=== PATIENT | male | born 1995 | race African-American/Black ===

== ENCOUNTER 2018-09-15 17:07 | Observation (INO) | payer BC ==
[~2018-09-15] VITALS: Ht 170.2 cm; Wt 63.0 kg
[~2018-09-15 17:07] MED LIST: NAPROSYN500 MG PO
--- NOTE | 2018-09-15 17:20 | NUR ---
PT TO ROOM WITH A STEADY GAIT.
--- NOTE | 2018-09-15 17:50 | NUR ---
IV INITATED AND LABS COLLECTED. PT MEDICATED WITH 4 MG OF ZOFRAN IVP AND FLUIDS INITIATED. PT AWARE OF PLAN OF CARE AND WAIT TIME. CALL LOPEZ WITHIN REACH, WILL CONTINUE TO MONITOR.
[2018-09-15 18:01] LABS: IMMATURE GRANULOCYTES 0.4 % (0.0-5.0); MEAN CORPUSCULAR HGB 27.4 pG CALC (26.0-32.0); MEAN CORPUSCULAR HGB CONC 31.9 g/L CALC (32.0-36.0); NEUT# 6.49 thou/uL (1.82-7.42); RED BLOOD COUNT 5.44 mill/uL (4.70-6.10)
[2018-09-15 18:04] LABS: HEMATOCRIT 46.7 % (39.0-50.0); HEMOGLOBIN 14.9 g/dl (14.0-18.0); MEAN CELL VOLUME 85.8 fL CALC (80.0-100.0)
--- NOTE | 2018-09-15 18:05 | NUR ---
TEMP RECHECK 101.2. PT ALSO REPORTS GENERALIZED BODY ACHES AND 4/10 PAIN TO THE RUQ. MLP NOTIFIED, AWAITING NEW RESULTS.
--- NOTE | 2018-09-15 18:10 | NUR ---
PT MEDICATED WITH 30 MG OF TORADOL IVP PER ORDER. LIGHTS DIMMED FOR COMFORT, PT AWARE OF PENDING CT SCAN. CALL LOPEZ WITHIN REACH.
[2018-09-15 18:15] LABS: ALBUMIN 4.9 g/dL (3.2-5.0); ALKALINE PHOSPHATASE 76 u/l (38-126); ANION GAP 16 (6-22 (CALC)); BILIRUBIN, TOTAL 0.7 mg/dL (0.0-1.4); BUN 13 mg/dL (9-20); BUN/CREATININE RATIO 14 (12-20 (CALC)); CARBON DIOXIDE 26 mmol/l (22-30); CHLORIDE 103 mmol/l (95-108); GFR > 60 ML/MIN (>=60 (CALC)); GFR FOR AFR.AMER. > 60 ML/MIN (>=60 (CALC)); LIPASE 51 u/l (23-300); POTASSIUM 4.4 mmol/l (3.5-5.1); SGOT/AST 24 u/l (17-59); SODIUM 140 mmol/l (137-146); TOTAL PROTEIN 8.8 g/dL (6.3-8.2)
--- NOTE | 2018-09-15 18:50 | NUR ---
PT REPORT TO PURNIMA MITCHELL.
--- NOTE | 2018-09-15 19:02 | NUR ---
RETURNED FROM CT.
--- NOTE | 2018-09-15 19:11 | NUR ---
PT AWAKE AND ALERT. PT RELATED PAIN HAS IMPROVED. CALL LOPEZ IN REACH.
[2018-09-15 20:00] LABS: URINE BILIRUBIN - DIPSTICK NEGATIVE (NEGATIVE); URINE BLOOD DIPSTICK NEGATIVE (NEGATIVE); URINE COLOR YELLOW; URINE GLUCOSE - DIPSTICK NEGATIVE (NEGATIVE); URINE KETONE NEGATIVE (NEGATIVE); URINE LEUK ESTERASE NEGATIVE (NEGATIVE); URINE NITRITE - DIPSTICK NEGATIVE (Negative); URINE PROTEIN - DIPSTICK NEGATIVE (NEG-TRACE); URINE SPECIFIC GRAVITY 1.015; URINE UROBILINOGEN - DIPSTICK 0.2 E.U./dL (0.2)
[2018-09-15 20:01] LABS: URINE CLARITY CLEAR
--- NOTE | 2018-09-15 20:55 | NUR ---
PT C/O NAUSEA DRINKING PO CONTRAST.
--- NOTE | 2018-09-15 21:32 | NUR ---
PT RELATED NAUSEA IMPROVED. PT DRINKING LAST PO CONSTRAST.
--- NOTE | 2018-09-15 22:24 | NUR ---
PT TO CT.
--- NOTE | 2018-09-15 22:39 | NUR ---
RETURNED FROM CT.
--- NOTE | 2018-09-15 23:18 | NUR ---
DR HINKLE AT BEDSIDE.
--- NOTE | 2018-09-15 23:51 | NUR ---
PT INFORMED OF REPEAT CT.
[2018-09-16] VITALS (12 sets, daily range): BP systolic 121–143; BP diastolic 62–87
--- NOTE | 2018-09-16 01:03 | NUR ---
PT TO CT.
--- NOTE | 2018-09-16 01:16 | NUR ---
RETURNED FROM CT.
--- NOTE | 2018-09-16 01:45 | NUR ---
INFORMED PT OF ADMISSION.
--- NOTE | 2018-09-16 02:11 | NUR ---
REPORT CALLED TO [facility] ICU.
--- NOTE | 2018-09-16 02:20 | NUR ---
PT TO ICU2 MED/SURG OVERFLOW WITH RN. PT COND STABLE.
--- NOTE | 2018-09-16 02:25 | NUR ---
PT TO ICU BED 2 VIA STRETCHER ACCOMPANIED BY ER STAFF. PT IS ALERT AND ORIENTED X3. ADMISSION ASSESSMENT COMPLETED AT THIS TIME. PLAN OF CARE REVIEWED. IV PATENT X1. ORIENTED TO ROOM AND UNIT. CALL LIGHT IN REACH. WILL CONTINUE TO MONITOR.
--- NOTE | 2018-09-16 03:41 | NUR ---
PT RESTING IN BED WITH EYES CLOSED. RESP ARE EVEN AND UNLABORED. NO DISTRESS NOTED. CALL LIGHT IN REACH. WILL CONTINUE TO MONITOR.
--- NOTE | 2018-09-16 07:05 | NUR ---
awake in bed; no distress noted; pt offers no complaints; assessment completed at this time; pt alert and oriented; denies pain; no n/v noted; resp even and unlabored; lungs clear throughout; skin color wnl; ra; hr reg; strong pulses; no edema noted; sr on monitor; abd soft with bs present; no pain with palpation/ no rebound pain noted; pt admits to prev having pain around umbilicus area; no bm noted per food writer at present; pt no urine to inspect at present; #20 in lac patent with ivf infusing without complication; no redness or edema noted at site; npo; plan of care explained; call light within reach; will continue to monitor
--- NOTE | 2018-09-16 08:06 | NUR ---
awake in bed; offers no complaints; iv patent; npo; call light within reach; will continue to monitor
--- NOTE | 2018-09-16 08:41 | NUR ---
Dr Palma called per this radio news writer in regards to Zosyn/ no orders for antibiotics; Dr Palma states that is up to the surgeon; will notify Dr Malik
--- NOTE | 2018-09-16 08:47 | NUR ---
Dr Malik called per loan underwriter in regards to antibiotics; informed none ordered; zosyn ordered and to be started now
--- NOTE | 2018-09-16 10:10 | NUR ---
awake in bed; s/o at bedside; no distress noted; iv patent; no redness or edema noted at site; NPO; denies needs; call light within reach; will continue to monitor
--- NOTE | 2018-09-16 10:51 | NUR ---
Dr Palma present at bedside to assess pt and discuss plan of care
--- NOTE | 2018-09-16 11:47 | NUR ---
OR at bedside to receive pt; report given to Ari Sahu RN
--- NOTE | 2018-09-16 14:20 | NUR ---
received from OR via stretcher accompanied by OR staff in stable condition; able to move self over to bed; assessment completed; alert but drowsy; resp even and unlabored; lungs clear; skin color wnl; ra; hr reg; strong pulses; no edema noted; bilat scd's placed; abd soft/ tender with bs hypoactive; #20 to lac with ivf infusing without complication; no redness or edema noted at site; dermabond glur intact to abd incisions x3; no drainage noted; plan of care explained; call light within reach; will continue to monitor
--- NOTE | 2018-09-16 14:26 | NUR ---
pt in OR
--- NOTE | 2018-09-16 14:40 | NUR ---
report received from OR PURNIMA Valerio
--- NOTE | 2018-09-16 15:14 | NUR ---
RT Fonseca at bedside with IS
--- NOTE | 2018-09-16 15:39 | NUR ---
awake in bed; s/o at bedside; IS explained with return demo; pt able to pull 2000ml x10 reps; is encouraged q1 hr x 10 reps
--- NOTE | 2018-09-16 15:58 | NUR ---
awake in bed; s.o in bed with pt; pt denies needs; deny pain; iv patent; fluids infusing without complication; no redness or edema noted at site; IS at bedside; scd's intact; call light within reach; will continue to monitor
--- NOTE | 2018-09-16 18:06 | NUR ---
awake in bed; eating cl liquids; offers no complaints; no distress noted; iv patent; fluids infusing without complication; no redness or edema noted at site; bed in lowest position; call light within reach
--- NOTE | 2018-09-16 19:30 | NUR ---
PT SITTING UP IN BED WATCHING TV. VISITOR IN ROOM. PT IS ALERT AND ORIENTED X3. SHIFT ASSESSMENT COMPLETED AT THIS TIME. IV PATENT X1. PLAN OF CARE REVIEWED WITH PT. CALL LIGHT IN REACH. WILL CONTINUE TO MONITOR
--- NOTE | 2018-09-16 22:09 | NUR ---
PUDDING PROVIDED. PT TOLERATED WELL. DILAUDID GIVEN IV PUSH PER MAR FOR PAIN. SIGNIFICANT OTHER IN BED WIT PT. CALL LIGHT IN REACH. WILL CONTINUE TO MONTIOR.
[2018-09-17] VITALS: BP 113/72
--- NOTE | 2018-09-17 00:03 | NUR ---
PT RESTING IN BED WITH EYES CLOSED. RESP ARE EVEN AND UNLABORED. NO DISTRESS NOTED. CALL LIGHT INR EACH. WILL CONTINUE TO MONITOR.
--- NOTE | 2018-09-17 03:32 | NUR ---
PT RESTING IN BED WITH EYES CLOSED. RESP ARE EVEN AND UNLABORED. NO DISTRESS NOTED. CALL LIGHT IN REACH. WILL CONTINUE TO MONTIOR
[2018-09-17 04:00] VITALS: BP 130/62
--- NOTE | 2018-09-17 04:05 | NUR ---
DIRECTOR TELEVISION NEWS INTO ROOM TO DRAW AM LABS
[2018-09-17 04:47] LABS: IMMATURE GRANULOCYTES 0.3 % (0.0-5.0); MEAN CELL VOLUME 87.6 fL CALC (80.0-100.0); MEAN CORPUSCULAR HGB CONC 30.8 g/L CALC (32.0-36.0); NEUT# 1.4 thou/uL (1.82-7.42); RED BLOOD COUNT 4.19 mill/uL (4.70-6.10); RED CELL DISTRI WIDTH 13.2 % (11.5-15.5)
[2018-09-17 04:58] LABS: HEMATOCRIT 36.7 % (39.0-50.0); HEMOGLOBIN 11.3 g/dl (14.0-18.0)
[2018-09-17 05:05] LABS: ALKALINE PHOSPHATASE 47 u/l (38-126); ANION GAP 9 (6-22 (CALC)); BILIRUBIN, TOTAL 0.5 mg/dL (0.0-1.4); BUN 8 mg/dL (9-20); BUN/CREATININE RATIO 8 (12-20 (CALC)); CARBON DIOXIDE 25 mmol/l (22-30); CHLORIDE 108 mmol/l (95-108); GFR > 60 ML/MIN (>=60 (CALC)); GFR FOR AFR.AMER. > 60 ML/MIN (>=60 (CALC)); MAGNESIUM 1.7 mg/dL (1.6-2.3); POTASSIUM 3.8 mmol/l (3.5-5.1); SGOT/AST 17 u/l (17-59); SODIUM 139 mmol/l (137-146)
[2018-09-17 05:06] LABS: ALBUMIN 2.9 g/dL (3.2-5.0); TOTAL PROTEIN 5.6 g/dL (6.3-8.2)
[2018-09-17 08:00] VITALS: BP 129/80
--- NOTE | 2018-09-17 08:00 | NUR ---
PT TOLERATED BREAKFAST WELL WITHOUT NAUSEA. SCDs OFF, ALLOWING PT TO AMBULATE IN ROOM TOLERATED. PAIN LEVEL TOLERABLE. NO DISTRESS, NO COMPLAINTS.
[2018-09-17 10:00] VITALS: BP 129/78
[2018-09-17] MEDS ORDERED: PERCOCET 5/325M1 TAB PO (11:06)
--- NOTE | 2018-09-17 11:48 | NUR ---
DR RICO HAS DISCHARGED PT TO HOME. IV REMOVED, MONITORS REMOVED, PT PROVIDED ANOTHER DOSE OF TORADOL PRIOR TO DEPARTURE. PT HAS BEEN AMBULATORY IN ROOM WITHOUT SIGNIFICANT DISCOMFORT. PT LEAVES [facility] IN STABLE CONDITION VIA WHEELCHAIR.
== END 2018-09-17 11:50 | disposition home or self-care (01) | DRG 343 ==
LOC: ED 17:07 → ED-I 09-16 01:00 → ED 09-16 01:48 → ICU 09-16 01:49
PROVIDERS: ADMIT Internal Medicine Nephrology; ATTEND Internal Medicine Nephrology
PROC: 0DTJ4ZZ Resection of Appendix, Percutaneous Endoscopic Approach (ICD-10-PCS; principal; 2018-09-16)
DX: K35.80 Unspecified acute appendicitis (principal); K38.1 Appendicular concretions; F12.10 Cannabis abuse, uncomplicated
CPT/HCPCS: J0131; J2710; Q9967

== ENCOUNTER 2019-01-29 12:37 | Emergency (ER) | payer BC ==
[~2019-01-29] VITALS: Ht 170.2 cm; Wt 70.0 kg
[~2019-01-29 12:37] MED LIST changes: +PERCOCET 5/325M1 TAB PO
[2019-01-29] MEDS ORDERED: AMOXICILLIN500 MG PO (13:09)
[2019-01-29 13:19] VITALS: BP 127/84
== END 2019-01-29 13:23 | disposition home or self-care (01) | DRG 153 ==
LOC: ED 12:37
DX: J02.9 Acute pharyngitis, unspecified (principal)

== ENCOUNTER 2019-05-18 08:45 | Emergency (ER) | payer BC ==
[~2019-05-18] VITALS: Ht 167.6 cm; Wt 61.3 kg
[~2019-05-18 08:45] MED LIST changes: +AMOXICILLIN500 MG PO
[2019-05-18 09:51] LABS: IMMATURE GRANULOCYTES 0.2 % (0.0-5.0); MEAN CELL VOLUME 85.6 fL CALC (80.0-100.0); MEAN CORPUSCULAR HGB 26.9 pG CALC (26.0-32.0); MEAN CORPUSCULAR HGB CONC 31.4 g/L CALC (32.0-36.0); NEUT# 2.1 thou/uL (1.82-7.42); RED BLOOD COUNT 5.21 mill/uL (4.70-6.10); RED CELL DISTRI WIDTH 12.9 % (11.5-15.5)
[2019-05-18 09:57] LABS: HEMATOCRIT 44.6 % (39.0-50.0)
[2019-05-18 10:01] LABS: ALBUMIN 4.4 g/dL (3.2-5.0); ALKALINE PHOSPHATASE 84 u/l (38-126); ANION GAP 11 (6-22 (CALC)); BILIRUBIN, TOTAL 0.3 mg/dL (0.0-1.4); BUN 11 mg/dL (9-20); BUN/CREATININE RATIO 11 (12-20 (CALC)); C-REACTIVE PROTEIN 1.1 mg/dL (0-0.9); CARBON DIOXIDE 30 mmol/l (22-30); CHLORIDE 106 mmol/l (95-108); GFR > 60 ML/MIN (>=60 (CALC)); GFR FOR AFR.AMER. > 60 ML/MIN (>=60 (CALC)); LIPASE 727 u/l (23-300); POTASSIUM 4.2 mmol/l (3.5-5.1); SGOT/AST 19 u/l (17-59); SODIUM 142 mmol/l (137-146); TOTAL PROTEIN 7.9 g/dL (6.3-8.2)
[2019-05-18 10:20] LABS: URINE BILIRUBIN - DIPSTICK NEGATIVE (NEGATIVE); URINE BLOOD DIPSTICK NEGATIVE (NEGATIVE); URINE COLOR YELLOW; URINE GLUCOSE - DIPSTICK NEGATIVE (NEGATIVE); URINE KETONE NEGATIVE (NEGATIVE); URINE LEUK ESTERASE NEGATIVE (NEGATIVE); URINE NITRITE - DIPSTICK NEGATIVE (Negative); URINE PROTEIN - DIPSTICK NEGATIVE (NEG-TRACE); URINE SPECIFIC GRAVITY 1.015; URINE UROBILINOGEN - DIPSTICK 0.2 E.U./dL (0.2)
[2019-05-18 12:26] VITALS: BP 159/76
== END 2019-05-18 12:26 | disposition home or self-care (01) | DRG 440 ==
LOC: ED 08:45
PROVIDERS: Family Medicine
DX: K85.90 Acute pancreatitis without necrosis or infection, unspecified (principal)
CPT/HCPCS: Q9967

== ENCOUNTER 2019-05-19 07:44 | Observation (INO) | payer BC ==
[~2019-05-19] VITALS: Ht 167.6 cm; Wt 65.3 kg
--- NOTE | 2019-05-19 07:47 | NUR ---
PATIENT AMBULATES TO ROOM WITH STEADY GAIT. BEDSIDE TRIAGE COMPLETED.
[2019-05-19 08:05] LABS: HEMATOCRIT 43.5 % (39.0-50.0); HEMOGLOBIN 13.7 g/dl (14.0-18.0); IMMATURE GRANULOCYTES 0.3 % (0.0-5.0); MEAN CELL VOLUME 84.3 fL CALC (80.0-100.0); MEAN CORPUSCULAR HGB 26.6 pG CALC (26.0-32.0); MEAN CORPUSCULAR HGB CONC 31.5 g/L CALC (32.0-36.0); NEUT# 4.7 thou/uL (1.82-7.42); RED BLOOD COUNT 5.16 mill/uL (4.70-6.10); RED CELL DISTRI WIDTH 12.9 % (11.5-15.5)
[2019-05-19 08:19] LABS: ALBUMIN 4.1 g/dL (3.2-5.0); ALKALINE PHOSPHATASE 86 u/l (38-126); ANION GAP 13 (6-22 (CALC)); BILIRUBIN, TOTAL 0.4 mg/dL (0.0-1.4); BUN 5 mg/dL (9-20); BUN/CREATININE RATIO 6 (12-20 (CALC)); CALCULATED LDLCHOLESTEROL 81 mg/dL (62-129 (CALC)); CARBON DIOXIDE 25 mmol/l (22-30); CHLORIDE 107 mmol/l (95-108); CHOLESTEROL HDL RATIO 3.9 (<4.4 (CALC)); CREATININE 0.9 mg/dL (0.7-1.3); ETHYL ALCOHOL 0 mg/dl (0-30); GFR > 60 ML/MIN (>=60 (CALC)); GFR FOR AFR.AMER. > 60 ML/MIN (>=60 (CALC)); HDL CHOLESTEROL 34 mg/dL (>=40); LIPASE 80 u/l (23-300); POTASSIUM 4.3 mmol/l (3.5-5.1); SGOT/AST 17 u/l (17-59); SODIUM 141 mmol/l (137-146); TOTAL CHOLESTEROL 134 mg/dl (0-199); TOTAL PROTEIN 7.5 g/dL (6.3-8.2); TOTAL TRIGLYCERIDES 94 mg/dl (30-149); VLDL CHOLESTROL 19 mg/dl (1-36 (CALC))
--- NOTE | 2019-05-19 08:48 | NUR ---
PT WITH IV ESTABLISHED, BLOOD DRAWN, MEDS PROVIDED ORDERED.
[2019-05-19 09:16] LABS: URINE BILIRUBIN - DIPSTICK NEGATIVE (NEGATIVE); URINE BLOOD DIPSTICK NEGATIVE (NEGATIVE); URINE COLOR YELLOW; URINE GLUCOSE - DIPSTICK NEGATIVE (NEGATIVE); URINE KETONE NEGATIVE (NEGATIVE); URINE LEUK ESTERASE NEGATIVE (NEGATIVE); URINE NITRITE - DIPSTICK NEGATIVE (Negative); URINE PROTEIN - DIPSTICK NEGATIVE (NEG-TRACE); URINE UROBILINOGEN - DIPSTICK 0.2 E.U./dL (0.2)
--- NOTE | 2019-05-19 09:16 | NUR ---
PT AWARE OF PENDING ADMISSION. NO DISTRESS, RESTS IN THE STRETCHER.
[2019-05-19 09:27] LABS: BARBITURATES NEGATIVE (NEGATIVE); COCAINE NEGATIVE (NEGATIVE); METHADONE NEGATIVE (NEGATIVE); OXCYCODONE NEGATIVE (NEGATIVE); TETRAHYDROCANNABIONOL POSITIVE (NEGATIVE); TRICYLIC ANTIDEPRESSANTS NEGATIVE (NEGATIVE)
--- NOTE | 2019-05-19 10:20 | NUR ---
[place]SP[place] [facility] [place] PURNIMA MONTANO AND SPOUSE. PT AMBULATED FROM TO BED W/ STEADY GAIT. VS DONE. PT A/O X3. SPEECH IS CLEAR. PERRLA. RESP EVEN AND UNLABORED. LUNG SOUNDS CLEAR. BOWEL SOUNDS ACTIVE X4. PT C/O RUQ AND RLQ TENDERNESS. DISCUSSED W/ PT I WILL GET PAIN MEDICATION. PT STATES UNDERSTANDING. STRONG RADIAL AND PEDAL PULSES. #20 LAC NS @125 STARTED. SITE APPEARS HEALTHY. PT DENIES ANY FURTHER NEEDS. POC DISCUSSED. SAFETY PRECAUTIONS IN PLACE. CALL LIGHT IN REACH. WILL CONTINUE TO MONITOR.
--- NOTE | 2019-05-19 10:23 | NUR ---
PT TAKEN TO ROOM 262 VIA WHEELCHAIR, REPORT WAS TO BRIANNE.
[2019-05-19 10:30] VITALS: BP 151/85
--- NOTE | 2019-05-19 12:00 | NUR ---
PT WATCHING TELEVISION. PT DENIES ANY NEEDS. IV FLUIDS INFUSING. CALL LIGHT IN REACH. WILL CONTINUE TO MONITOR.
[2019-05-19 15:55] VITALS: BP 138/73
--- NOTE | 2019-05-19 16:08 | NUR ---
PT C/O ABDOMINLA PAIN; 5 OUT OF 10 ON PAIN SCALE. MEDICATED W/ LORTAB 5/325 PO. REPOSITIONED FOR COMFORT. CALL LIGHT IN REACH. WILL CONTINUE TO MONITOR.
--- NOTE | 2019-05-19 19:00 | NUR ---
RECEIVED REPORT FROM NURSE BRIANNE, PATIENT RESTING IN BEED WATCHING TV EVEN UNLABORED BREATHING NO DISCOMFORTS NOTED AT THIS TIME, CALL LIGHT AT REACH.
[2019-05-19 19:05] VITALS: BP 134/84
--- NOTE | 2019-05-19 20:00 | NUR ---
PATIENT ALERT AND ORIENTED ABLE TO MAKE NEEDS KNOWN, WITH ONGOING IV OF NS @ 125CC/HR INFUSING WELL ON LAC, LAST BM 05/19, ON CLEAR LIQUID DIET, FAMILY IN ROOM CALL LIGHT AT REACH.
--- NOTE | 2019-05-20 01:02 | NUR ---
PATIENT RESTING IN BED EYES CLOSED, EVEN UNLABORED BREATHING CALL LIGHT AT REACH.
[2019-05-20 03:53] VITALS: BP 129/75
--- NOTE | 2019-05-20 03:56 | NUR ---
PATIENT AWAKE ALERT AND ORINETED ABLE TO MAKE NEEDS KNOWN, REMAINS ON CLEAR LIQUID DIET, NO DISCOMFORTS NOTED AT THIS TIME, CALL LIGHT AT REACH.
[2019-05-20 06:32] LABS: ANION GAP 10 (6-22 (CALC)); BUN 4 mg/dL (9-20); BUN/CREATININE RATIO 4 (12-20 (CALC)); CARBON DIOXIDE 28 mmol/l (22-30); CHLORIDE 106 mmol/l (95-108); CREATININE 0.8 mg/dL (0.7-1.3); GFR > 60 ML/MIN (>=60 (CALC)); GFR FOR AFR.AMER. > 60 ML/MIN (>=60 (CALC)); LIPASE 34 u/l (23-300); SODIUM 141 mmol/l (137-146)
--- NOTE | 2019-05-20 07:15 | NUR ---
PT REPORT RECIEVED FROM PURNIMA KNAPP. PT RESTING. NO S/S OF DISTRESS. CALL LIGHT IN REACH. WILL CONTINUE TO MONITOR.
[2019-05-20 07:53] VITALS: BP 134/68
--- NOTE | 2019-05-20 07:53 | NUR ---
PT A/O X3. SPEECH IS CLEAR. RESP EVEN AND UNLABORED. LUNG SOUNDS CLEAR. BOWEL SOUNDS ACTIVE X4. PT C/O ABDOMINAL DISCOMFORT; REPOSITIONED FOR COMFORT. STRONG RADIAL AND PEDAL PULSES. #22 LAC NS @125. SITE APPEARS HEALTHY. SKIN INTACT. PT DENIES ANY FURTHER NEEDS. POC DISCUSSED. SAFETY PRECAUTIONS IN PLACE. CALL LIGHT IN REACH. WILL CONTINUE TO MONITOR.
[2019-05-20] MEDS ORDERED: SUCRALFATE1 GM/10 ML PO (08:49)
[2019-05-20] MEDS ORDERED: PANTOPRAZOLE SO40 M1 PO (08:49)
[2019-05-20] MEDS ORDERED: LORTAB 5/3255 MG PO (08:49)
--- NOTE | 2019-05-20 10:34 | NUR ---
D/C INSTRUCTIONS DISCUSSED W/ PT. PT STATES UNDERSTANDING. IV REMOVED. CATHETER INTACT. PT GETTING DRESSED.
--- NOTE | 2019-05-20 10:38 | NUR ---
Discharge instructions given. Patient verbalizes understanding of same. Discharged in stable condition via Ambulatory to Home with family. All belongings sent with pt.
== END 2019-05-20 10:34 | disposition home or self-care (01) | DRG 440 ==
LOC: ED 07:44 → ED-I 08:08 → ED 08:34 → MS2 08:35
PROVIDERS: Family Medicine; ADMIT Internal Medicine; ATTEND Internal Medicine
DX: K85.90 Acute pancreatitis without necrosis or infection, unspecified (principal); K29.70 Gastritis, unspecified, without bleeding; A08.4 Viral intestinal infection, unspecified; K59.00 Constipation, unspecified; F12.90 Cannabis use, unspecified, uncomplicated; Z72.89 Other problems related to lifestyle
CPT/HCPCS: G0378

== ENCOUNTER 2019-09-14 12:20 | Emergency (ER) | payer BC ==
[~2019-09-14] VITALS: Ht 167.6 cm; Wt 61.0 kg
[~2019-09-14 12:20] MED LIST changes: +LORTAB 5/3255 MG PO; +PANTOPRAZOLE SO40 M1 PO; +SUCRALFATE1 GM/10 ML PO
[2019-09-14] MEDS ORDERED: IMODIUM A-D2 M3 PO (14:16)
[2019-09-14 14:46] VITALS: BP 136/71
== END 2019-09-14 14:46 | disposition home or self-care (01) | DRG 392 ==
LOC: ED 12:20
DX: K52.9 Noninfective gastroenteritis and colitis, unspecified (principal)

== ENCOUNTER 2022-08-12 14:24 | Emergency (ER) | payer OTHER ==
[~2022-08-12] VITALS: Ht 167.6 cm; Wt 63.2 kg
[2022-08-12] VITALS (8 sets, daily range): BP systolic 115–140; BP diastolic 72–89
[~2022-08-12 14:24] MED LIST changes: +IMODIUM A-D2 M3 PO
[2022-08-12 15:06] LABS: HEMATOCRIT 42.1 % (39.0-50.0); HEMOGLOBIN 13.4 g/dl (14.0-18.0); IMMATURE GRANULOCYTES 0.3 % (0.0-5.0); MEAN CELL VOLUME 85.2 fL CALC (80.0-100.0); MEAN CORPUSCULAR HGB 27.1 pG CALC (26.0-32.0); MEAN CORPUSCULAR HGB CONC 31.8 g/dL CAL (32.0-36.0); NEUT# 2.13 thou/uL (1.82-7.42); RED BLOOD COUNT 4.94 mill/uL (4.70-6.10); RED CELL DISTRI WIDTH 13.3 % (11.5-15.5)
[2022-08-12 15:12] LABS: ALBUMIN 4.7 g/dL (3.2-5.0); ALKALINE PHOSPHATASE 66 u/l (38-126); ANION GAP 13 (6-22 (CALC)); BUN 7 mg/dL (9-20); BUN/CREATININE RATIO 8 (12-20 (CALC)); CARBON DIOXIDE 28 mmol/l (22-30); CHLORIDE 108 mmol/l (95-108); CREATININE 0.9 mg/dL (0.7-1.3); GFR FOR AFR.AMER. > 60 ML/MIN (>=60 (CALC)); GFR OTHER RACES > 60 ML/MIN (>=60 (CALC)); LIPASE 77 u/l (23-300); POTASSIUM 4.2 mmol/l (3.5-5.1); SGOT/AST 27 u/l (17-59); SODIUM 145 mmol/l (137-146); TOTAL PROTEIN 8.1 g/dL (6.3-8.2)
[2022-08-12 15:13] LABS: BILIRUBIN, TOTAL 0.6 mg/dL (0.0-1.4)
[2022-08-12] MEDS ORDERED: PROMETHAZINE HY25 M1 PO (15:47)
== END 2022-08-12 16:27 | disposition home or self-care (01) | DRG 392 ==
LOC: ED 14:24
PROVIDERS: Family Medicine
DX: K52.9 Noninfective gastroenteritis and colitis, unspecified (principal)